=== PATIENT | female | born 2000 | race Caucasian/White ===

== ENCOUNTER 2023-07-25 11:42 | Outpatient (CLI) | payer OTHER ==
--- NOTE | 2023-07-25 16:38 | Ultrasound Report ---
PROCEDURE: Extremity Soft Tissue Limited INDICATIONS: WRIST LUMP TECHNIQUE: Real-time scanning was performed of the wrist, with image documentation. COMPARISON: None. Findings and impression: At the area of clinical concern on the right wrist palmar side, no discrete mass or fluid collection is identified. Clinical followup is recommended. If there is new or worsening clinical concern, reima ging could be obtained. Reviewed by: Keyur Redmnod MD on 07/25/2023 4:36 PM PDT Approved by: Keyur Redmond MD on 07/25/2023 4:36 PM PDT Station ID: [id number]
== END 2023-07-25 11:43 | disposition home or self-care (01) ==
LOC: DI 11:42
PROVIDERS: ATTEND Nurse Practitioner Family
DX: M25.531 Pain in right wrist (principal)